=== PATIENT | female | born 1990 | race American Indian/Alaskan Native ===

== ENCOUNTER 2020-01-14 16:55 | Inpatient (IN) | payer MEDICAID ==
[2020-01-14] MEDS ORDERED: METOCLOPRAMIDE 10 MG/2 ML INJ IV ONE (17:57)
[2020-01-14] MEDS ORDERED: FAMOTIDINE 20 MG/2 ML INJ IV ONE (17:57)
[2020-01-14] MEDS ORDERED: BICITRA ORAL LIQD 30ML PO ONE (17:57)
[2020-01-14] MEDS ORDERED: OXYTOCIN 20 UNIT/1000ML DRIP 20 UNITS/1,000 ML BAG IV SCH ×2 (18:00→21:00)
[2020-01-14] MEDS ORDERED: LACTATED RINGERS 1,000 ML IV SCH (18:00)
[2020-01-14 19:11] LABS: Basophils # (Auto) 0.1 K/mm3 (0.0-0.1); Basophils % (Auto) 1.1 % (0.0-1.8); Eosinophils % (Auto) 0.2 % (0.0-4.3); Hemoglobin 13.8 gm/dl (10.1-14.3); Lymphocytes # (Auto) 1.7 K/mm3 (1.2-5.4); Lymphocytes % (Auto) 20.1 % (13.4-35.0); Mean Corpuscular HGB Conc 35 % (30-34); Mean Corpuscular Volume 97 fl (79-97); Monocytes # (Auto) 0.4 K/mm3 (0.0-0.8); Monocytes % (Auto) 4.8 % (0.0-7.3); Platelet Count 140 K/mm3 (140-440); Red Blood Count 4.13 M/mm3 (3.65-5.03)
[2020-01-14] MEDS ORDERED: DEXMEDETOMIDINE 200 MCG/2 ML VIAL IV ONE (19:19)
[2020-01-14] MEDS ORDERED: ONDANSETRON 4 MG/2 ML INJ ONE (19:19)
[2020-01-14] MEDS ORDERED: dexAMETHasone 20 MG/5 ML VIAL ONE (19:19)
[2020-01-14] MEDS ORDERED: BUPIVACAINE/PF (0.5%) 5 MG/1 ML 30 ML VIAL INFILTRATI ONE (19:19)
[2020-01-14] MEDS ORDERED: KETOROLAC 30 MG/1 ML INJ ONE (19:21)
--- NOTE | 2020-01-14 19:26 | Anesthesia Day of Surgery ---
Anesthesia Day of Surgery - Day of Surgery Patient Examined: Yes Patient H&P Reviewed: Yes Patient is NPO: Yes
--- NOTE | 2020-01-14 19:26 | Anesthesia Consultation ---
Anesthesia Consult and Med Hx Date of service: 01/14/20 - Airway Anesthetic Teeth Evaluation: Good ROM Head & Neck: Adequate Mental/Hyoid Distance: Adequate Mallampati Class: Class II Intubation Access Assessment: Probably Good - Pulmonary Exam CTA: Yes - Cardiac Exam Cardiac Exam: RRR - Pre-Operative Health Status ASA Pre-Surgery Classification: ASA3 Proposed Anesthetic Plan: Spinal - Pulmonary Hx Asthma: No - Cardiovascular System Hx Hypertension: No - Central Nervous System Hx Seizures: No Hx Psychiatric Problems: No - Endocrine Hx Renal Disease: No Hx Hypothyroidism: No Hx Hyperthyroidism: No - Hematic Hx Anemia: Yes Hx Sickle Cell Disease: No - Other Systems Hx Alcohol Use: No Hx Obesity: Yes
--- NOTE | 2020-01-14 20:07 | History and Physical Report ---
History of Present Illness Date of examination: 01/14/20 Date of admission: 01/14/20 16:57 Chief complaint: Oligohydramnios History of present illness: 29-year-old -0-0-2 at 38+1 weeks who presents with findings of oligohydramnios after evaluation by maternal- medicine. The patient's been followed during her course with [facility] women's [employer]. Past History Past Medical History: no pertinent history Past Surgical History: section Social history: single - Obstetrical History Expected Date of Delivery: 01/27/20 Actual Gestation: 38 Week(s) 1 Day(s) : 3 Para: 2 Hx # Term Pregnancies: 2 Number of Pregnancies: 0 Spontaneous Abortions: 0 Induced : 0 Number of Living Children: 2 Medications and Allergies Allergies Allergy/AdvReac Type Severity Reaction Status Date / Time No Known Allergies Allergy Verified 01/14/20 17:57 Home Medications Medication Instructions Recorded Confirmed Last Taken Type Aspirin [Adult Aspirin] 81 mg PO DAILY 01/14/20 01/14/20 01/13/20 08:00 History 1 Active Meds: Active Medications Lactated Ringer's (Lactated Ringers) 1,000 mls @ 2,250 mls/hr IV PREOP DINORA Stop: 01/15/20 18:27 Last Admin: 01/14/20 19:22 Dose: 2,250 mls/hr Documented by: Oxytocin/Sodium Chloride (Pitocin/Ns 20 Unit/1000ml Drip) 20 units in 1,000 mls @ 0 mls/hr IV DIRECT DINORA Review of Systems All systems: negative Genitourinary: contractions - Vital Signs Vital signs: Vital Signs Pulse Pulse Ox 62 100 01/14/20 17:44 01/14/20 17:44 Temp Pulse Resp BP Pulse Ox 98.2 F 63 20 124/74 100 01/14/20 17:59 01/14/20 20:01 01/14/20 17:59 01/14/20 17:59 01/14/20 20:01 - Physical Exam Breasts: Positive: deferred Cardiovascular: Regular rate Lungs: Positive: Clear to auscultation Abdomen: Positive: normal appearance Results Result Diagrams: 01/14/20 18:30 Abnormal lab results 01/14/20 Range/Units 18:30 MCH 34 H (28-32) pg MCHC 35 H (30-34) % Seg Neutrophils % 73.8 H (40.0-70.0) % All other labs normal. Assessment and Plan - Patient Problems (1) Oligohydramnios Current Visit: Yes Status: Acute Plan to address problem: Admit for repeat delivery (2) Previous delivery affecting Current Visit: Yes Status: Acute
[2020-01-14] MEDS ORDERED: ONDANSETRON 4 MG/2 ML INJ IV PRN (20:26)
[2020-01-14] MEDS ORDERED: LANOLIN/ZINC/DIMETHICONE (LANSINOH) 7 GM TP PRN (20:26)
[2020-01-14] MEDS ORDERED: WITCH HAZEL/ GLYCERIN PAD TP PRN (20:26)
[2020-01-14] MEDS ORDERED: MORPHINE 4 MG/1 ML INJ IV PRN (20:26)
[2020-01-14] MEDS ORDERED: NALOXONE 0.4 MG/1 ML INJ IV PRN (20:26)
[2020-01-14] MEDS ORDERED: ACETAMINOPHEN 325 MG TAB PO PRN (20:26)
[2020-01-14] MEDS ORDERED: ceFAZolin/Water 2 GM/20 ML 2 GM/20 ML SYRINGE IV ONE (20:40)
[2020-01-14] MEDS ORDERED: WATER FOR IRRIG STERILE 1,500 ML BOTTLE IR ONE (20:50)
[2020-01-14] MEDS ORDERED: SODIUM CHLORIDE 0.9% IRR 1,500 ML BOTTLE IR ONE (20:50)
[2020-01-14] MEDS ORDERED: D5W/LACTATED RINGERS 1,000 ML IV SCH (21:00)
--- NOTE | 2020-01-14 21:45 | Procedure Note ---
OB Delivery Note - Delivery Date of Delivery: 01/14/20 Surgeon: MANUEL MORTENSEN Estimated blood loss: 500cc - Section Preop diagnosis: repeat Postop diagnosis: same Disposition: PACU Complications: none - Infant A at 1 minute: 8 at 5 minutes: 8 Infant Gender: Male (Weight 5 pounds 10 ounces)
--- NOTE | 2020-01-14 21:47 | Operative Report ---
Operative Report Operative Report: Date of surgery: January 14, 2020 Preoperative diagnosis: at 38+1 weeks; previous delivery; oligohydramnios; intrauterine growth restriction Postoperative diagnosis: Same as above Procedure: Repeat low transverse delivery Surgeon: Renetta Mccray M.D. Anesthesia: Regional Estimated blood loss: 500 mL IV fluids: 1500 mL Urine output: 75 mL Findings: Liveborn male with Apgars of 8 and 8 weight 5 pounds 10 ounces Indications: 29-year-old -0-0-2 at 38+1 weeks who was admitted for repeat delivery secondary to findings of oligohydramnios and intrauterine growth restriction. Procedure: The patient was taken to the operating room and given regional anesthesia without complication. She was prepped and draped in a normal sterile fashion. A Pfannenstiel skin incision was made down to layer the fascia which was nicked in the midline extended laterally with the Bovie cautery. The superior aspect of the rectus fascia was grasped with Osco clamps x2 and the rectus muscles off sharply. This was done in inferior fashion as well. The rectus muscle midline and peritoneum entered bluntly. An Lewis retractor was then inserted. A bladder blade was placed. The vesicouterine peritoneum was then entered sharply with Metzenbaum scissors. A bladder flap was created digitally. A low transverse uterine incision was then made and extended digitally. There was clear fluid upon entry into the uterine cavity. The head was delivered through the incision with fundal pressure. The cord was clamped and cut x2 and was passed off to pediatrics. The placenta was then manually extracted. The uterus was then exteriorized and cleared of clots and debris. The uterine incision was then closed in a running locked fashion with 0 Vicryl additional imbricating stitch was applied for 2 layer closure. The posterior cul-de-sac was then copiously irrigated. The uterus was replaced back into the abdomen and pelvis were the gutters were then irrigated. The Lewis retractor was then removed. The peritoneum was then reapproximated with 3-0 Vicryl incorporating the rectus muscle. The fascia was then closed with 0 Vicryl in a running fashion. The skin was then reapproximated with 3-0 Monocryl on a Kamron needle subcuticular fashion. Steri-Strips to place across the incision and a Crede procedures performed at the end of the surgery. A pressure dressing was applied to the incision. The surgery productive of a liveborn male infant with Apgars of 8 and 8 weight 5 pounds 10 ounces. The patient was taken to the recovery room in stable condition. All sponge laps and needle counts correct x2.
--- NOTE | 2020-01-14 22:18 | Post Anesthesia Evaluation ---
- Post Anesthesia Evaluation Patient Participated: Yes Airway Patent: Yes Stable Respiratory Function: Yes Nausea/Vomiting: No Temp > 96.8F: Yes Pain Manageable: Yes Adequeate Hydration: Yes Anesthesia Complications: No Block Receding Appropriately: Yes
--- NOTE | 2020-01-14 22:19 | Progress Note ---
Regional Anesthesia Block - Regional Anesthesia Block Start Time: 22:10 Stop Time: 22:15 Performed By:: JENNIFER TAPIA Procedure: U/S guided bilateral tap block performed for post-operative pain requested by Dr. Lind. H&P & labs reviewed. Procedure explained, questions answered, consent obtained. Patient in the supine position with ekg, blood pressure cuff and pulse ox on and working in PACU. Timeout performed immediately before start of procedure. Probe placed in the mid-axillary line and the external oblique, internal oblique, and transverse abdominus muscles identified. Skin was cleansed with 0.5% Chlorahexadine and allowed to dry. A 4" 20 G Kaye echogenic needle was advanced in plane until the tip was in the fascial plane between the internal oblique and the transverse abdominus. After negative aspiration 35 ml/side of [30 ml 0.5% Bupivacaine], [50 mcg dexmedetomidine], [8 mg dexamethasone], and [40 ml sterile saline] was injected in 5 ml increments with negative aspiration in between. Patient tolerated procedure well. Mendez RODRIGUEZ
[2020-01-15] MEDS: KETOROLAC 30 MG/1 ML INJ IV PRN ×2 (02:33→08:45)
--- NOTE | 2020-01-15 08:44 | Progress Note ---
Assessment and Plan A: POD1 s/p rLTCS and BTL Vital signs stable Awaiting pp H&H P: Routine post-op care Timely pain management Subjective - Subjective Date of service: 01/15/20 Principal diagnosis: s/p rLTCS and BTL Interval history: POD1 s/p rLTCS and BTL Patient reports: appetite normal, voiding normally, flatus, pain poorly controlled (just received Toradol), ambulating normally [place]: doing well, bottle feeding (will attempt breast feeding) Objective - Vital Signs Latest vital signs: Vital Signs Temp Pulse Resp BP BP Pulse Ox 01/15/20 05:10 98.1 F 52 L 20 135/88 100 01/15/20 00:15 119/66 01/15/20 00:07 42 L 119/66 99 01/15/20 00:05 98.2 F 20 01/14/20 22:15 50 L 18 98/60 98 01/14/20 22:00 97.5 F L 45 L 16 110/60 98 01/14/20 20:30 98.4 F 62 18 120/78 100 01/14/20 20:21 59 L 100 01/14/20 20:16 57 L 100 01/14/20 20:11 62 100 01/14/20 20:06 64 100 01/14/20 20:01 63 100 01/14/20 19:56 60 100 01/14/20 19:51 65 01/14/20 19:46 75 01/14/20 19:41 68 01/14/20 19:36 66 01/14/20 19:31 67 100 01/14/20 19:26 59 L 100 01/14/20 19:21 59 L 100 01/14/20 18:54 66 100 01/14/20 18:49 70 100 01/14/20 18:44 72 100 01/14/20 18:39 71 100 01/14/20 18:34 69 01/14/20 18:29 63 100 01/14/20 18:24 66 01/14/20 18:19 71 01/14/20 18:14 66 100 01/14/20 18:09 65 100 01/14/20 18:04 59 L 100 01/14/20 17:59 98.2 F 60 20 124/74 124/74 100 01/14/20 17:54 62 100 01/14/20 17:49 68 100 01/14/20 17:44 62 100 Intake and Output 01/14/20 01/15/20 01/15/20 23:59 07:59 15:59 Intake Total 2200 240 Output Total 165 800 Balance 2034 -560 Intake: IV 2200 Oral 240 Output: Urine 165 800 Indwelling Catheter 800 Other: Total, Intake Amount 240 Total, Output Amount 800 # Voids Void 1 Weight 280 lb Estimated Blood Loss 500 - Exam Lungs: Present: Normal air movement Abdomen: Present: soft. Absent: distention Uterus: Present: firm, fundal height below umbilicus. Absent: bogginess Extremities: Present: normal Incision: Present: dressed - Labs Labs: Abnormal lab results 01/14/20 Range/Units 18:30 MCH 34 H (28-32) pg MCHC 35 H (30-34) % Seg Neutrophils % 73.8 H (40.0-70.0) %
[2020-01-15 09:38] LABS: Hemoglobin 12.3 gm/dl (10.1-14.3)
[2020-01-15] MEDS: oxyCODONE /ACETAMINOPHEN 5-325MG TAB PO PRN ×2 (13:40→20:24)
[2020-01-15] MEDS: IBUPROFEN 800 MG TAB PO PRN (17:39)
[2020-01-16] MEDS: IBUPROFEN 800 MG TAB PO PRN ×4 (00:49→22:01)
[2020-01-16] MEDS: oxyCODONE /ACETAMINOPHEN 5-325MG TAB PO PRN ×2 (04:28→12:38)
--- NOTE | 2020-01-16 08:16 | Progress Note ---
Assessment and Plan - Patient Problems (1) Oligohydramnios Current Visit: Yes Status: Acute Plan to address problem: Patient doing well Discharge home tomorrow (2) Previous delivery affecting Current Visit: Yes Status: Acute Subjective - Subjective Date of service: 01/16/20 Principal diagnosis: s/p rLTCS and BTL Interval history: The patient reports doing well. The infant currently has elevated bilirubin levels and is receiving light therapy. The patient is tolerating a regular diet and her pain is controlled. Patient reports: appetite normal, voiding normally, pain well controlled : doing well Objective - Vital Signs Latest vital signs: Vital Signs Temp Pulse Resp BP Pulse Ox 01/16/20 00:08 97.7 F 56 L 20 117/61 99 01/15/20 20:50 97.9 F 62 20 124/66 100 01/15/20 17:15 66 18 109/58 100 01/15/20 13:27 54 L 18 135/82 100 01/15/20 09:06 98.0 F 55 L 20 133/75 98 Intake and Output 01/15/20 01/16/20 01/16/20 22:59 06:59 14:59 Intake Total 1080 240 Balance 1080 240 Intake: Oral 600 240 Intake, Free Water 480 Other: Total, Intake Amount 240 240 # Voids Void 1 1 - Exam Abdomen: Present: normal appearance Incision: Present: normal, dry
[2020-01-17] MEDS: oxyCODONE /ACETAMINOPHEN 5-325MG TAB PO PRN (06:15)
[2020-01-17 09:58] VITALS: BP 144/83
[2020-01-17] MEDS: IBUPROFEN 800 MG TAB PO PRN (10:31)
--- NOTE | 2020-01-17 11:13 | Progress Note ---
Assessment and Plan - Patient Problems (1) Oligohydramnios Current Visit: Yes Status: Acute Plan to address problem: Patient doing well Discharge home (2) Previous delivery affecting Current Visit: Yes Status: Acute Subjective - Subjective Date of service: 01/17/20 Principal diagnosis: s/p rLTCS and BTL Interval history: The patient reports doing well. She states that her pain is well controlled and she was tolerating regular diet. Patient reports: appetite normal, voiding normally, pain well controlled : doing well Objective - Vital Signs Latest vital signs: Vital Signs Temp Pulse Resp BP BP Pulse Ox 01/17/20 09:17 97.7 F 60 18 144/83 99 01/17/20 00:38 98.0 F 65 18 120/68 100 01/16/20 16:35 97.6 F 60 18 112/65 100 01/16/20 12:38 20 Intake and Output 01/16/20 01/17/20 01/17/20 22:59 06:59 14:59 Intake Total 240 660 Balance 240 660 Intake: Oral 240 Intake, Free Water 660 Other: Total, Intake Amount 240 # Voids Void 2 1 - Exam Abdomen: Present: normal appearance, soft Incision: Present: normal
--- NOTE | 2020-01-17 11:15 | Discharge Summary ---
Providers - Providers Date of Admission: 01/14/20 16:57 Date of discharge: 01/17/20 Attending physician: MANUEL MORTENSEN Primary care physician: AMNUEL MORTENSEN Hospitalization Reason for admission: section Delivery: Procedure: section, repeat low transverse Discharge diagnosis: IUP at term delivered Hospital course: The patient was admitted for repeat delivery secondary to findings of oligohydramnios and intrauterine growth restriction. The patient was taken for repeat delivery please see operative note for details of surgery. Her course was uneventful. Condition at discharge: Good Disposition: DC-01 TO HOME OR SELFCARE - Discharge Diagnoses (1) Oligohydramnios Status: Acute (2) Previous delivery affecting Status: Acute Plan - Discharge Medications Prescriptions: Ibuprofen [Motrin] 800 mg PO Q8HR PRN #60 tablet PRN Reason: Pain , Severe (7-10) oxyCODONE /ACETAMINOPHEN [Percocet 5/325] 1 tab PO Q6HR PRN #30 tablet PRN Reason: Pain - Provider Discharge Summary Activity: no sex for 6 weeks, no heavy lifting 4 weeks, no strenuous exercise Diet: routine Instructions: routine Additional instructions: [] Smoking cessation referral if applicable(refer to patient education folder for contact #) [] Refer to [facility] Booklet Call your doctor immediately for: * Fever > 100.5 * Heavy vaginal bleeding ( >1 pad per hour) * Severe persistent headache * Shortness of breath * Reddened, hot, painful area to leg or breast * Drainage or odor from incision. * Keep incision clean and dry at all times and follow doctor's instructions regarding bathing/showering Schedule visit in 2 weeks - Follow up plan
== END 2020-01-17 12:35 | disposition home or self-care (01) | DRG 765 ==
LOC: TRG 16:55 → APU 16:57 → OB 23:35
PROVIDERS: ADMIT Obstetrics & Gynecology; ATTEND Obstetrics & Gynecology
PROC: 10D00Z1 Extraction of Products of Conception, Low, Open Approach (ICD-10-PCS; principal; 2020-01-14)
DX: O34.211 Maternal care for low transverse scar from previous cesarean delivery (principal); O41.03X0 Oligohydramnios, third trimester, not applicable or unspecified; O36.5930 Maternal care for other known or suspected poor fetal growth, third trimester, not applicable or unspecified; Z37.0 Single live birth; Z3A.38 38 weeks gestation of pregnancy; Z20.828 Contact with and (suspected) exposure to other viral communicable diseases
CPT/HCPCS: 36415; 85014; 85018; 85025; 86850; 86900; 86901; 88307; G0378; J0690; J1100; J1885; J2270; J2405; J2590; J2765; J3490; J7120; J7121; U0003-CS